=== PATIENT | male | born 1980 | race Caucasian/White ===

== ENCOUNTER 2025-04-18 10:45 | Inpatient (IN) | payer OTHER, SELFPAY ==
[2025-04-17 20:36] VITALS: BP 159/104; BMI 25.0
[2025-04-17 20:43] VITALS: BP 159/104
[2025-04-17 21:47] LABS: Hematocrit 34.6 % (39.0-52.0); Hemoglobin 12.1 g/dL (13.0-18.0); Mean Corp Hgb Conc. 35.0 g/dL (33.0-37.0); Mean Corpuscular Volume 81.6 fL (80.0-94.0); Nucleated Red Blood Cells % 0 % (-); Platelet Count 191 10^3/uL (130-400); Red Cell Dist. Width 13.4 % (11.5-14.5)
[2025-04-17 22:07] LABS: ALT (SGPT) 67 U/L (0-50); AST (SGOT) 54 U/L (17-59); Albumin 3.8 g/dl (3.5-5.0); Alkaline Phosphatase 639 U/L (38-126); Blood Urea Nitrogen 15 mg/dl (9-20); Calcium 9.0 mg/dl (8.4-10.2); Carbon Dioxide 26 mmol/L (22-30); Chloride 102 mmol/L (98-107); Estimated Creatinine Clearance > 125 ml/min; Glucose 110 mg/dl (70-99); Potassium 3.8 mmol/L (3.5-5.1); Sodium 135 mmol/L (135-145); Total Protein 7.0 g/dl (6.3-8.2); eGFR > 60.00
[2025-04-18 04:00] VITALS: BP 150/104
--- NOTE | 2025-04-18 04:06 | ED.GENMED ---
History of Present Illness
General
Chief Complaint: Skin Problem
Source: patient and police
Exam Limitations: none
Time Seen by Provider: 04/18/25 03:41
Nursing documentation reviewed up to this point in time: agreed with
History of Present Illness
History of Present Illness:
45-year-old male presents from [facility] for 'infection in both of his legs '. Patient states for the last year he has had open leg wounds on his bilateral anterior tibias. He states that it is from tranq use. He reports
that in December he had a 9-day hospital stay at an outside hospital for osteomyelitis. He states he had several MRIs and was discharged in improved condition. Shortly thereafter he was incarcerated and has been getting wound care ever since.
Patient states [facility]. 3 days ago he started to notice some redness and increased swelling in his legs. He saw an RN today and she arranged to have him transported to [facility] for evaluation. She
confirmed that the erythema in his legs is worsening and she is concerned for osteomyelitis. Patient denies fever or chills. He states that his legs are more painful now than before.
Review of Systems
Review of Systems
Allergies reviewed?: Yes
All Other Systems: ROS reviewed and negative except as documented in HPI and ROS
Constitutional: Reports no symptoms
EENT: Reports no symptoms
Respiratory: Reports no symptoms
Cardiac: Reports no symptoms
ABD/GI: Reports no symptoms
: Reports no symptoms
Musculoskeletal: Reports joint pain, muscle pain and edema
Skin: Reports no symptoms
Neurological: Reports no symptoms
Endocrine: Reports no symptoms
Hematologic/Lymphatic: Reports no symptoms
Psychiatric: Reports no symptoms
Phy Exam
General Physical Exam
General Presentation: mild distress
General age: appears older than age
General Skin: warm, dry and other (Multiple wounds in various stages of healing)
General Habitus: poor hygiene
General Mental: alert
General Hydration: appears well hydrated
Cardiovascular Exam
Cardiovascular Exam: regular rate/rhythm and no edema
Pulmonary Exam
Pulmonary Exam: lungs clear and no respiratory distress
Skin Exam
Skin Exam: other (Large ulcers on the anterior tibias bilaterally running most of the length of the tibia. These wounds are surrounded by areas of deep erythema which is painful and indurated consistent with cellulitis.)
Course
Orders/Labs/Results
Orders:
Orders
04/17/25 21:36
Complete Blood Count/With Diff Urgent
Comprehensive Metabolic Panel Urgent
Blood Culture Urgent
KARIN Source: Blood/Venous
Specimen Description:
04/17/25 21:43
Lactic Acid Urgent
04/18/25 04:08
CR Leg Tibia/fibula Left 2 Vw Urgent
Comment:
Reason For Exam: open wound
CR Leg Tibia/fibula Right 2 Vw Urgent
Comment:
Reason For Exam: open wound
04/18/25 04:15
Blood Culture Q30M
KARIN Source: Blood/Venous
Specimen Description:
04/18/25 04:47
CefTRIAXone [Rocephin] 2,000 mg IV NOW STA
04/18/25 04:48
Vancomycin [Vancocin] 2,000 mg 0.9% Sodium Chloride 500 ml [Nss] 500 ml IV NOW
04/18/25 04:49
Sterile Water [Sterile Water For Injection] 20 ml IV NOW STA
Abnormal Lab Results
04/17/25
21:36
WBC 4.2 L 10^3/uL
(4.8-10.8)
RBC 4.24 L 10^6/uL
(4.70-6.10)
Hgb 12.1 L g/dL
(13.0-18.0)
Hct 34.6 L %
(39.0-52.0)
MPV 11.2 H fL
(7.4-10.4)
Absolute Lymphs (auto) 0.9 L 10^3/uL
(1.2-3.4)
Monocytes % 11.0 H %
(1.7-9.3)
Creatinine 0.6 L mg/dL
(0.7-1.3)
Glucose 110 H mg/dl
(70-99)
Total Bilirubin 1.6 H mg/dl
(0.2-1.3)
ALT 67 H U/L
(0-50)
Alkaline Phosphatase 639 H U/L
(38-126)
04/17/25 21:36
04/17/25 21:36
Vital Signs
Initial and Last Documented VS:
Initial Vital Signs
Pulse Resp BP Pulse Ox
109 18 159/104 100
04/17/25 20:36 04/17/25 20:36 04/17/25 20:36 04/17/25 20:36
Last Documented Vital Signs
Temp Pulse Resp BP Pulse Ox
98.2 F 92 19 159/104 100
04/18/25 04:01 04/18/25 03:45 04/18/25 03:45 04/17/25 20:43 04/18/25 04:08
*Pulse Oximetry
SaO2: 100
Oxygen Mode of Delivery: Room air
Patient hypoxic: no
*Critical Care Note
Total Time (30-74mins, 75-104mins- exclusive of procedures): Not Applicable
ED Attending Note
-
Portions of this chart may have been created with voice recognition software.� Occasional wrong word or��sound alike� substitutions may have occurred due to the inherent limitations of voice recognition software.
Discharge Plan
Departure
Patient Disposition: Admit
Date of Disposition: 04/18/25
Time of Disposition: 04:57
Admit to: Med/Surg
Presentation/result/management discussed w/ accepting MD/DO: Hospitalist
Discharge Problem:
Wound infection, Cellulitis, Suspected osteomyelitis
Referrals:
[facility] [Family Provider, General]
Interventions
Interventions:
*General Assessment Last Done: 04/17/25 20:36
*Neglect/Abuse Screening Last Done: 04/17/25 20:36
*ED COVID-19 Vaccine History Last Done: 04/17/25 20:36
*ED Influenza Vaccine History Last Done: 04/17/25 20:36
[facility] Fall Risk Assessment Tool Last Done: 04/17/25 21:01
*Risk Screen - Suicide (C-SSRS) Last Done: 04/17/25 20:36
ED-Skin Assessment Last Done: 04/18/25 04:01
Discharge Date and Time
Print Language: YAKUT
[2025-04-18 06:25] VITALS: BP 135/87
--- NOTE | 2025-04-18 06:31 | VATNOTE ---
attempted x3 to estahlish iv access in pt for ordered abx and pending lab draws as well. pt had usg iv previously inserted last pm but became occluded and non-patent. removed by pcn. will recommend midline to be inserted. pcn aware of plan of care.
[2025-04-18 07:00] VITALS: BP 135/90
--- NOTE | 2025-04-18 07:31 | HPS.HSE ---
Family Physician
-
Family Physician: Facility [facility]
Chief Complaint
-
Leg Wounds
History of Present Illness
This is a 45 year old male patient presenting to [facility] from [facility] for concerns of leg wounds. He states that he has noticed bilateral leg wounds for the past year from tranq use. He was treated at [facility] for
osteomyelitis with IV antibiotics and felt improved after being discharged. He was incarcerated shortly thereafter and has been getting consistent wound care at the correctional facility. He states for the past 1 week he had noticed skin around
his wounds was red, painful. He also noticed his bilateral leg swelling. [facility], he was arranged to arrive at [facility].
Patient denies any fever, nausea, vomiting or chills. 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
Medical History
Past Medical History
Past Medical History: Reports None and HTN
Past Surgical History: Reports Appendectomy
Social History
Tobacco: Non-smoker
Alcohol: None
Drug: IVDA (IVDA since 24 years old, mostly heroin)
Living: [facility]
Family History
Family History: Not pertinent
Allergies / Home Medications
Allergies reflects when Allergies were last updated in [facility].
Home Medications with original date entered in [facility]
Allergy/Medication List:
Allergies
Allergy/AdvReac Type Severity Reaction Status Date / Time
No Known Allergies Allergy Verified 04/18/25 04:19
Review of Systems
-
History Source: Patient
A 12 point ROS was completed and negative except as noted: Yes
Musculoskeletal: Reports Other (Bilateral leg swelling)
Physical Exam
Vital Signs
Vital Signs
Temp Pulse Resp BP Pulse Ox
97.8 F 92 18 150/104 97
04/18/25 06:27 04/18/25 04:30 04/18/25 04:30 04/18/25 04:00 04/18/25 04:30
Physical Exam
General: No Apparent Distress and Conversant
HEENT: NormoCephalic and Anicteric
Respiratory: Clear
Cardiac: S1/S2 and Regular Rhythm
GI: Soft, Non Tender and Non Distended
Musculoskeletal: Other (Bilateral leg wound with surrounding erythematous skin, tender)
Skin: Warm and Dry
Neuro: Awake, Alert and Oriented
Psych: Calm
Laboratory Results
-
04/17/25 21:36
04/17/25 21:36
Laboratory Results
Lactic Acid 1.1 mmol/L (0.7-2.0) 04/17/25 21:43
Total Bilirubin 1.6 mg/dl (0.2-1.3) H 04/17/25 21:36
AST 54 U/L (17-59) 04/17/25 21:36
ALT 67 U/L (0-50) H 04/17/25 21:36
Alkaline Phosphatase 639 U/L (38-126) H 04/17/25 21:36
Impression/Plan
-
IMPRESSION:This is a 45 year old male patient presenting to [facility] from [facility] for concerns of leg wounds.
PLAN:
#Bilateral Leg wounds infection
- x ray L & R legs:No acute osseous abnormality of the bilateral lower legs
- blood cultures pending
- LA normal, ALP elevated
- Continue IV Vancomycin and IV cefepime
- elevate limbs
- wound care consult
#Anemia
- hb 12.1 likely attributable to ongoing infection
- monitor cbc
#HTN
-start correctional facility meds pt was previously on (lasix, losartan)
#Tinea Cruris
-start clotrimazole cream in groin area
Code: Full Code
DVT ppx: lovenox
[2025-04-18] MEDS: STERILE WATER FOR INJECTION 20 ML IV (08:44)
[2025-04-18] MEDS: ROCEPHIN 2000 MG IV (08:46)
[2025-04-18] MEDS: VANCOCIN 540 MG IV (08:47)
[2025-04-18] MEDS: LOTRIMIN 1% CREAM 1 APPLIC TOPICAL ×2 (10:23→20:54)
[2025-04-18 11:32] VITALS: BP 120/72
[2025-04-18] MEDS: LASIX 40 MG PO (11:33)
[2025-04-18] MEDS: COZAAR 50 MG PO (11:33)
[2025-04-18] MEDS: VITAMIN B1 100 MG PO (11:33)
--- NOTE | 2025-04-18 12:01 | PHA.VAN.IN ---
Assessment
- Assessment
Renal Function: Unknown baseline
Concomitant Antimicrobials: CEFTRIAXONE 2000 MG Q 24H
AUC Dosing Plan
- Dosing Variables
Dosing Weight (kg): 86
Dosing CrCl (ml/min): 125
Vd coefficient (L/kg): 0.7
- Empiric Dosing
Initial / Loading Dose: 2000 MG 04/18 @08:47
Maintenance Regimen: 1500 MG Q12
Estimated AUC (mcg*h/mL): 498
Estimated Peak (mcg*h/mL): 34.3
Estimated Trough (mcg/ml): 11
Estimated Half Life (H): 6.4
- Monitoring
No levels ordered at this time: CONSIDER ORDERING NEXT FEW DAYS
Pharmacokinetics Vancomycin I
- -
Patient Age: 45
Patient Sex: Male
Vancomycin Day #: 1
Indication: Bone And Joint
Requesting Provider: PRABHU MURCIA
Height / Weight:
Height 6 ft 1 in
Actual Weight 86 kg
Pertinent Past Medical History: PREVIOUS HISTORY OF OSTEOMYELITIS, LEG WOUNDS, IVDA
- Vital Signs / Lab Results
Temp Pulse Resp BP Pulse Ox
97.8 F 92 13 120/72 97
04/18/25 06:27 04/18/25 11:32 04/18/25 11:32 04/18/25 11:32 04/18/25 06:30
Lab Results - Hematology
04/17/25
21:36
WBC 4.2 L
Lab Results - Chemistry
04/17/25
21:36
BUN 15
Creatinine 0.6 L
Estimated Creat Clear > 125
Albumin 3.8
04/17/25
21:43
Lactic Acid 1.1
--- NOTE | 2025-04-18 14:39 | WOUNDNOTE ---
[facility] RN note: Patient admitted with bilateral LE cellulitis
See H&P for complete history.
PMH: hypertension, injection drug use (opiates and tranquilizer), and chronic lower extremity wounds
Wound Location and type/assessment: Patient admitted with full thickness wound to right and left LE due to IVDA. Patient reports he has had wounds for over a year and they are being treated at correctional facility by cleaning with Dakins,
applying adaptic, and wearing DONITA wraps (per patient report). Patient has +2 LE edema and with palpable pulses. See worklist for measurements and description of wounds. Sacrum and heels intact.
Appetite: Fair
Pressure redistribution devices in place: Called bed tech for bed. Patient currently in ER.
Plan: Wounds cleaned with Dakins and Xeroform, ABD and suhail applied. Patient reported some pain with wound care but tolerated well. Patient agreeable to follow up at [facility] after discharge from hospital. Will confirm orders with hospitalist and update
nurse. Updated care plan and will follow as needed.
Note to case management of equipment requested for discharge:
Recommend follow up at wound care center upon discharge.
[2025-04-18 15:30] VITALS: BP 142/86; BMI 24.0
--- NOTE | 2025-04-18 15:52 | WOUNDNOTE ---
RIGHT LATERAL LOWER LEG
--- NOTE | 2025-04-18 15:53 | WOUNDNOTE ---
LEFT LATERAL LOWER LEG
[2025-04-18] MEDS: VANCOCIN 530 MG IV (18:13)
[2025-04-18] MEDS: LOVENOX 40 MG SC (18:13)
[2025-04-18] MEDS: TYLENOL 650 MG PO (20:45)
[2025-04-18] MEDS: ZYRTEC 10 MG PO (20:51)
--- NOTE | 2025-04-18 21:29 | PTCARENOTE ---
Pt states that BLE dressings were changed in the afternoon and he does not want them changed again tonight. House [employer] made aware and changed Dakin's and Lac hydrin orders from [facility] to [facility].
[2025-04-18] MEDS: PAMELOR PO (22:13)
[2025-04-18 23:00] VITALS: BP 141/80
[2025-04-19 05:11] LABS: ALT (SGPT) 63 U/L (0-50); AST (SGOT) 53 U/L (17-59); Albumin 3.4 g/dl (3.5-5.0); Alkaline Phosphatase 646 U/L (38-126); Blood Urea Nitrogen 11 mg/dl (9-20); Calcium 9.0 mg/dl (8.4-10.2); Carbon Dioxide 23 mmol/L (22-30); Chloride 105 mmol/L (98-107); Estimated Creatinine Clearance > 125 ml/min; Glucose 141 mg/dl (70-99); Potassium 3.8 mmol/L (3.5-5.1); Sodium 136 mmol/L (135-145); Total Protein 6.2 g/dl (6.3-8.2); eGFR > 60.00
[2025-04-19 05:24] LABS: Hematocrit 35.4 % (39.0-52.0); Hemoglobin 12.2 g/dL (13.0-18.0); Mean Corp Hgb Conc. 34.5 g/dL (33.0-37.0); Mean Corpuscular Volume 81.6 fL (80.0-94.0); Nucleated Red Blood Cells % 0 % (-); Platelet Count 175 10^3/uL (130-400); Red Cell Dist. Width 13.1 % (11.5-14.5)
[2025-04-19] MEDS: VANCOCIN 530 MG IV ×2 (06:16→17:43)
[2025-04-19 07:20] VITALS: BP 157/93
[2025-04-19] MEDS: VITAMIN B-12 1000 MCG PO (10:40)
[2025-04-19] MEDS: ZINC 50 MG PO (10:40)
[2025-04-19] MEDS: COZAAR 50 MG PO (10:41)
[2025-04-19] MEDS: VITAMIN B1 100 MG PO (10:41)
[2025-04-19] MEDS: VITAMIN D3 (cholecalciferol) 125 MCG PO (10:41)
[2025-04-19] MEDS: VITAMIN C 500 MG PO (10:41)
[2025-04-19] MEDS: THERAGRAN 1 TABLET PO (10:41)
[2025-04-19] MEDS: LASIX 40 MG PO (10:42)
[2025-04-19] MEDS: TYLENOL 650 MG PO ×2 (10:42→19:37)
--- NOTE | 2025-04-19 10:42 | PHA.VAN.FU ---
Vancomycin Assessment / Plan
- Assessment
Renal Function: Stable
WBC's are: WNL
In the past 24 hrs, patient has been: Afebrile
- Dosing Plan
Continue: 1500 MG Q 12
- Monitoring Plan
No level(s) ordered at this time: Consider ordering over the next few days
- Follow Up
Pharmacy will continue to follow.
Vancomycin Follow UP
- -
Patient Age: 45
Patient Sex: Male
Vancomycin Day #: 2
Indication: Bone And Joint
Requesting Provider: PRABHU MURCIA
Height / Weight:
Height 6 ft 1 in
Actual Weight 82.611 kg
Pertinent Past Medical History: PREVIOUS HISTORY OF OSTEOMYELITIS, LEG WOUNDS, IVDA
- Vital Signs / Lab Results
Temp Pulse Resp BP Pulse Ox
97.7 F 93 18 157/93 95
04/19/25 07:20 04/19/25 07:20 04/19/25 07:20 04/19/25 07:20 04/19/25 07:20
Lab Results - Hematology
04/17/25 04/19/25
21:36 04:27
WBC 4.2 L 3.1 L
Lab Results - Chemistry
04/17/25 04/19/25
21:36 04:27
BUN 15 11
Creatinine 0.6 L 0.5 L
Estimated Creat Clear > 125 > 125
Albumin 3.8 3.4 L
04/17/25
21:43
Lactic Acid 1.1
Microbiology Results
04/18/25 08:22 Blood Culture - Preliminary
Blood/Venous No Growth in 24 hours- Final report to follow
04/17/25 21:36 Blood Culture - Preliminary
Blood/Venous No Growth in 24 hours- Final report to follow
[2025-04-19] MEDS: ROCEPHIN 2000 MG IV (10:43)
[2025-04-19] MEDS: STERILE WATER FOR INJECTION 20 ML IV (10:43)
[2025-04-19] MEDS: FOLVITE 1 MG PO (10:43)
[2025-04-19] MEDS: LOTRIMIN 1% CREAM 1 APPLIC TOPICAL ×2 (10:49→19:41)
[2025-04-19] MEDS: LAC HYDRIN, AM LACTIN LOTION 1 APPLIC TOPICAL (10:50)
[2025-04-19] MEDS: SODIUM HYPOCHLORITE 0.5% 473 ML TOPICAL (10:51)
[2025-04-19] MEDS: LIDOCAINE 4% PATCH 1 PATCH TOPICAL (12:15)
[2025-04-19] MEDS: TORADOL 15 MG IV (12:20)
--- NOTE | 2025-04-19 14:18 | W.PN.HOSP.TC ---
Today's Communication/Plan
-
Assessment / Plan
Assessment / Plan
General: No Apparent Distress, Comfortable and Conversant
HEENT: NormoCephalic, Moist mucous membranes, Atraumatic
Respiratory: Clear and Non Labored Respirations
Cardiac: S1/S2 and Regular Rhythm; No Rub or Gallop
GI: Soft, normal bowel sounds
Musculoskeletal: Chronic appearing bilateral garcia wounds with surrounding erythema, left shoulder/neck pain with mild weakness of left armor reconnaissance specialist strength
Skin: Warm and dry
: No Cruz
Neuro: Awake, Alert, Nonfocal/grossly intact
Psych: Calm and cooperative
Mr. 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
wounds. The medical staff at his correctional facility had been caring for his wounds however he began developing worsening erythema around his wounds over the past 1 week. His wounds have become more painful and he has also noticed some swelling.
He was previously treated at [facility] for osteomyelitis due to his lower extremities due to his wounds. He was incarcerated following that treatment and has been receiving wound care regularly since that time. He is not in acute opiate
withdrawal. He remains hemodynamically stable. He denies any fever or chills. X-ray imaging shows no evidence of osteomyelitis in his lower extremities adjacent to his wounds. He was started on antibiotics and admitted for further evaluation and
management.
Acute on chronic wounds, bilateral lower extremities:
- No evidence of osteomyelitis on imaging
- Continue IV antibiotics with vancomycin and ceftriaxone, follow-up blood and wound cultures
- Local wound care
- Monitor for signs and symptoms of systemic infection
Left shoulder/neck pain:
- Acute, with radiation from neck down left arm
- Also has associated weakened left hand armor reconnaissance specialist strength
- Will give NSAID pain medication and lidocaine patch
- Will consider MRI C-spine
Abnormal LFTs:
- T. bili 1.6, AST 54/ALT 67, alk phos 639
- LFTs relatively unchanged today with T. bili 1.7, AST 53/AST 63, alk phos 646
- Unclear chronicity
- Right upper quadrant ultrasound shows mildly dilated common biliary duct of 8 mm, enlarged liver and spleen, gallbladder sludge and stones without evidence of acute cholecystitis
- Will ask for GI evaluation
Anemia:
- Mild with hemoglobin 12.1, possibly due to smoldering infection
- Stable
DVT prophylaxis: Lovenox
CODE STATUS: Full code
Anticipated Discharge: > 48 hours
Subjective/Interval History
-
Date of Service: April 19, 2025
Patient was seen and examined at bedside this morning. Complains of left shoulder and arm pain with weakness in his left hand. LFTs also remain abnormal and right upper quadrant ultrasound shows gallbladder sludge and slightly dilated CBD.
Objective Data
-
Labs:
Laboratory Results
04/19/25
04:27
WBC 3.1 L
Hgb 12.2 L
Hct 35.4 L
Plt Count 175
Sodium 136
Potassium 3.8
Chloride 105
Carbon Dioxide 23
BUN 11
Creatinine 0.5 L
Glucose 141 H
Calcium 9.0
Total Bilirubin 1.7 H
AST 53
ALT 63 H
Alkaline Phosphatase 646 H
Vital Signs:
Vital Signs
Temp Pulse Resp BP Pulse Ox
97.7 F 93 18 157/93 95
04/19/25 07:20 04/19/25 10:41 04/19/25 07:20 04/19/25 10:41 04/19/25 13:19
I&O
04/18/25 04/19/25 04/20/25
06:59 06:59 06:59
Intake Total 530 / 530
Balance 530 / 530
Review of Systems
-
History Source: Patient
All other systems: Reviewed and negative
Musculoskeletal: Reports Other (Left shoulder and arm pain with left hand weakness)
Physical Exam
-
General: No Apparent Distress
--- NOTE | 2025-04-19 14:31 | CM ---
CM reviewed chart, care ongoing.
Anticipated d/c <48 hrs.
Patient inmate at [facility], plan to return upon d.c.
CM will continue to follow for all d/c needs.
Plan; return to [facility]
Report: [phone]
[2025-04-19 15:23] VITALS: BP 157/93
--- NOTE | 2025-04-19 16:56 | CON.GI ---
Addendum entered and electronically signed by Herberth Dalton MD 04/19/25 17:39:
Given elevated alk phos, will check GRAHAM, AMA, immunoglobulins r/o PBC
Original Note:
Consultation
-
Date/Time Consultation Requested: 04/19/25 11:09am
Date/Time Consultation Performed: 04/19/25 4:57pm
Requesting Provider: Anup Ravi
Performing Provider: Herberth Dalton
Reason for Consultation: Abmildly dilated CBDnl LFTs, gallstones
Medical History
Chief Complaint / HPI
Chief Complaint: Abmildly dilated CBDnl LFTs, gallstones
History of Present Illness:
45yo male presents from correctional facility with LE pain. He has hx LE wounds treated from October-December. Eval this admission negative for osteomyelitis. LFTs noted to be abnl. He reports IVDU beginning at age 27. He was abstinent for 13 years,
then relapsed year and half ago. He states he tested negative of Hep C in 2014. Drinks EtOH couple times per week, a 6 pack of beer. Denies abd pain, n/v, anorexia. He did lose weight when treating for LE wounds
Past Medical History
Past Medical History: HTN and Other (LE wounds)
Past Surgical History: None
Social History
Alcohol: Occasional
Drug: IVDA (IVDA beginning age 27. Was abstinent for 13 years then relapsed year and half ago.)
Family History
Family History: Reviewed & Not Pertinent
Allergies / Home Medications
Allergy/AdvReac Type Severity Reaction Status Date / Time
No Known Allergies Allergy Verified 04/18/25 04:19
�Medication �Instructions �Recorded
acetaminophen 325 mg tablet 650 mg PO BID mild pain 04/18/25
ammonium lactate 12 % lotion 1 applic topical HS b/l legs 04/18/25
ascorbic acid (vitamin C) 500 mg 500 mg PO DAILY Supplement 04/18/25
tablet (Vitamin C)
cetirizine 10 mg tablet 10 mg PO QHS Allergies 04/18/25
cholecalciferol (vitamin D3) 125 125 mcg PO DAILY Supplement 04/18/25
mcg (5,000 unit) tablet (Vitamin
D3)
cyanocobalamin (vitamin B-12) 1,000 mcg PO DAILY Supplement 04/18/25
1,000 mcg tablet (Vitamin B-12)
folic acid 1 mg tablet 1 mg PO DAILY Supplement 04/18/25
furosemide 40 mg tablet 40 mg PO DAILY Fluid 04/18/25
Retention/Swelling
losartan 50 mg tablet 50 mg PO DAILY Blood Pressure 04/18/25
nortriptyline 50 mg capsule 50 mg PO HS Mental Health/Anxiety 04/18/25
sodium hypochlorite 0.5 % solution 1 applic topical HS b/l legs 04/18/25
(Dakin's Solution)
therapeutic multivitamin 1 tab PO DAILY Supplement 04/18/25
thiamine HCl (vitamin B1) 100 mg 100 mg PO DAILY Supplement 04/18/25
tablet (Vitamin B-1)
zinc sulfate 50 mg zinc (220 mg) 50 mg PO DAILY Supplement 04/18/25
capsule
Review of Systems
-
All other systems: A 12 pt ROS was Negative except as stated above in HPI
Vital Signs
Temp Pulse Resp BP Pulse Ox
97.3 F 78 18 157/93 97
04/19/25 15:23 04/19/25 15:23 04/19/25 15:23 04/19/25 15:23 04/19/25 15:23
Physical Exam
Exam
General: Well Developed, Well Nourished and No Apparent Distress
HEENT: Normocephalic and Atraumatic
Respiratory: Non Labored Respirations
GI: Soft, Non Tender and Non Distended
Results
WBC 3.1 10^3/uL (4.8-10.8) L 04/19/25 04:27
Hgb 12.2 g/dL (13.0-18.0) L 04/19/25 04:27
Hct 35.4 % (39.0-52.0) L 04/19/25 04:27
MCV 81.6 fL (80.0-94.0) 04/19/25 04:27
Plt Count 175 10^3/uL (130-400) 04/19/25 04:27
Absolute Neuts (auto) 1.8 10^3/uL (1.4-6.5) 04/19/25 04:27
Sodium 136 mmol/L (135-145) 04/19/25 04:27
Potassium 3.8 mmol/L (3.5-5.1) 04/19/25 04:27
Chloride 105 mmol/L (98-107) 04/19/25 04:27
Carbon Dioxide 23 mmol/L (22-30) 04/19/25 04:27
BUN 11 mg/dl (9-20) 04/19/25 04:27
Creatinine 0.5 mg/dL (0.7-1.3) L 04/19/25 04:27
Calcium 9.0 mg/dl (8.4-10.2) 04/19/25 04:27
Total Bilirubin 1.7 mg/dl (0.2-1.3) H 04/19/25 04:27
AST 53 U/L (17-59) 04/19/25 04:27
ALT 63 U/L (0-50) H 04/19/25 04:27
Alkaline Phosphatase 646 U/L (38-126) H 04/19/25 04:27
Diagnostic Image Results:
US- CBD mildly dilated 8mm. Liver enlarged 21cm. Small hyperechoic lesions likely hemangiomas. Severe splenomegaly. GB sludge/stones
Assessment / Plan
-
Summary: 45yo male hx IVDU presents from correctional facility with LE pain due to leg wounds. Eval negative for osteomyelitis. LFTs abnl. US shows mildly dilated CBD, splenomegaly, GS/sludge. Tested negative hep C in 2014. Started IVDA age
27, abstinent 13 yrs then relapsed year and half ago.
US- CBD mildly dilated 8mm. Liver enlarged 21cm. Small hyperechoic lesions likely hemangiomas. Severe splenomegaly. GB sludge/stones
Impression:
LE pain/wounds
Abnl LFTs
IVDU
Dilated CBD on US
Recommendations:
Check MRI/MRCP r/o CBD stone, obstructing lesion
Check Hep B/C serologies
-
-
Thank you for consultation and allowing me to participate in the patient's care. Please call the [facility] manager GI physician during the after hours with any questions or concerns.
[2025-04-19] MEDS: LOVENOX 40 MG SC (17:43)
[2025-04-19] MEDS: REMOVE LIDOCAINE PATCH 1 PATCH REMOVE (19:37)
[2025-04-19] MEDS: PAMELOR 50 MG PO (19:38)
[2025-04-19] MEDS: ZYRTEC 10 MG PO (19:40)
[2025-04-19 23:00] VITALS: BP 160/102
[2025-04-19] MEDS: APRESOLINE 5 MG IV (23:09)
[2025-04-20 04:00] VITALS: BP 146/94
[2025-04-20 05:23] LABS: Hematocrit 34.7 % (39.0-52.0); Hemoglobin 12.5 g/dL (13.0-18.0); Mean Corp Hgb Conc. 36.0 g/dL (33.0-37.0); Mean Corpuscular Volume 81.3 fL (80.0-94.0); Nucleated Red Blood Cells % 0 % (-); Platelet Count 170 10^3/uL (130-400); Red Cell Dist. Width 12.8 % (11.5-14.5)
[2025-04-20 05:42] LABS: ALT (SGPT) 58 U/L (0-50); AST (SGOT) 51 U/L (17-59); Albumin 3.3 g/dl (3.5-5.0); Alkaline Phosphatase 651 U/L (38-126); Blood Urea Nitrogen 12 mg/dl (9-20); Calcium 8.7 mg/dl (8.4-10.2); Carbon Dioxide 21 mmol/L (22-30); Chloride 106 mmol/L (98-107); Estimated Creatinine Clearance > 125 ml/min; Glucose 133 mg/dl (70-99); Iron 88 ug/dl (49-181); Potassium 3.7 mmol/L (3.5-5.1); Sodium 136 mmol/L (135-145); Total Protein 6.1 g/dl (6.3-8.2); eGFR > 60.00
[2025-04-20 05:52] LABS: Total Iron Binding Capacity 398 ug/dl (261-462)
[2025-04-20 06:15] LABS: Ferritin 37.4 ng/ml (17.9-464.0)
[2025-04-20] MEDS: VANCOCIN 530 MG IV ×2 (06:19→17:42)
--- NOTE | 2025-04-20 06:24 | W.PN.GI.CBS2 ---
Today's Communication / Plan
-
Await rest of liver work-up and MRI/MRCP this AM. Rest of care as outlined below.
Assessment / Plan
-
Summary: 45yo male hx IVDU presents from correctional facility with LE pain due to leg wounds. Eval negative for osteomyelitis. LFTs abnl. US shows mildly dilated CBD, splenomegaly, GS/sludge. Tested negative hep C in 2014. Started IVDA age
27, abstinent 13 yrs then relapsed year and half ago.
US- CBD mildly dilated 8mm. Liver enlarged 21cm. Small hyperechoic lesions likely hemangiomas. Severe splenomegaly. GB sludge/stones
#Cholestatic-induced Liver Inury
#Elevated LFTs
#Biliary Ductal Dilation on US
#LE pain/wounds
#IVDU/IVDA
Dilated CBD on US
Added-on additional AI and PBC labs. Pending hepatitis serologies. No INR. LFTs remain elevated with predominant cholestatic-induced liver injury with ALP 651, AST 51, ALT 58 and T Bili 1.4
Recommendations:
- Keep NPO
- Trend LFTs q daily along with daily INRs
- Await viral hepatitis serologies
- Added-on additional AIH/PBC labs
- Ordered MRI/MRCP WWO contrast
- Pain control and anti-emetics PRN
- Rest of care as per primary team
GI will continue to follow.
Subjective
Subjective
Date of Service: April 20, 2025
- No acute events overnight, ordered MRI/MRCP given elevated LFTs and prior US findings with biliary dilation
- Added-on additional AI and PBC labs. Pending hepatitis serologies. No INR
- LFTs remain elevated with predominant cholestatic-induced liver injury with ALP 651, AST 51, ALT 58 and T Bili 1.4
Resting comfortably, seen on-route to MRI. Mild abdominal discomfort this AM but notes improvement and without any abdominal pain. Otherwise, denies any other fever/chills or nausea/vomiting.
Objective
Data Reviewed
Laboratory Data:
Laboratory Results
04/20/25 04:59
04/20/25 04:59
Laboratory Results
Total Bilirubin 1.4 mg/dl (0.2-1.3) H 04/20/25 04:59
AST 51 U/L (17-59) 04/20/25 04:59
ALT 58 U/L (0-50) H 04/20/25 04:59
Alkaline Phosphatase 651 U/L (38-126) H 04/20/25 04:59
Vital Signs and I&O:
Vital Signs
Temp Pulse Resp BP Pulse Ox
97.8 F 95 18 146/94 97
04/19/25 23:00 04/20/25 04:00 04/19/25 23:00 04/20/25 04:00 04/19/25 23:00
I&O
04/18/25 04/19/25 04/20/25
06:59 06:59 06:59
Intake Total 530 / 530 960 / 960
Balance 530 / 530 960 / 960
Physical Exam
Physical Exam
HEENT: Anicteric and Moist mucous membranes
Pulmonary: Other (Normal WOB on room air)
GI: Soft, Non Distended and Non Tender
[2025-04-20 06:25] LABS: Hepatitis B Surface Antigen Negative (Negative)
[2025-04-20 06:43] LABS: Hepatitis C Antibody Negative (Negative)
[2025-04-20 08:00] VITALS: BP 163/108
--- NOTE | 2025-04-20 09:37 | PHA.VAN.FU ---
Vancomycin Assessment / Plan
- Assessment
Renal Function: Stable
In the past 24 hrs, patient has been: Afebrile
Concomitant Antimicrobials: ceftriaxone
- Dosing Plan
Continue: Vanc 1500mg Q12H
- Monitoring Plan
Peak Level: 04/20 21:30
Trough Level: 04/21 05:30
Monitoring Comments: levels to be drawn after 5th maintenance dose
- Follow Up
Pharmacy will continue to follow.
Vancomycin Follow UP
- -
Patient Age: 45
Patient Sex: Male
Vancomycin Day #: 3
Indication: Bone And Joint
Requesting Provider: Dr. Bynum (resident)
Pertinent Antimicrobial Allergies:
NKDA
Height / Weight:
Height 6 ft 1 in
Actual Weight 82.611 kg
Pertinent Past Medical History: IV SANODR
- Vital Signs / Lab Results
Temp Pulse Resp BP Pulse Ox
97.9 F 98 16 163/108 97
04/20/25 08:00 04/20/25 08:00 04/20/25 08:00 04/20/25 08:00 04/20/25 08:00
Lab Results - Hematology
04/17/25 04/19/25 04/20/25
21:36 04:27 04:59
WBC 4.2 L 3.1 L 2.5 L
Lab Results - Chemistry
04/17/25 04/19/25 04/20/25
21:36 04:27 04:59
BUN 15 11 12
Creatinine 0.6 L 0.5 L 0.5 L
Estimated Creat Clear > 125 > 125 > 125
Albumin 3.8 3.4 L 3.3 L
04/17/25
21:43
Lactic Acid 1.1
Microbiology Results
04/18/25 08:22 Blood Culture - Preliminary
Blood/Venous No Growth in 48 hours- Final report to follow
04/17/25 21:36 Blood Culture - Preliminary
Blood/Venous No Growth in 48 hours- Final report to follow
[2025-04-20] MEDS: VITAMIN B-12 1000 MCG PO (09:44)
[2025-04-20] MEDS: VITAMIN C 500 MG PO (09:56)
[2025-04-20] MEDS: ZINC 50 MG PO (09:56)
[2025-04-20] MEDS: THERAGRAN 1 TABLET PO (09:57)
[2025-04-20] MEDS: TYLENOL 650 MG PO ×2 (09:57→20:28)
[2025-04-20] MEDS: COZAAR 50 MG PO (09:57)
[2025-04-20] MEDS: VITAMIN B1 100 MG PO (09:57)
[2025-04-20] MEDS: FOLVITE 1 MG PO (09:58)
[2025-04-20] MEDS: LIDOCAINE 4% PATCH 1 PATCH TOPICAL (09:58)
[2025-04-20] MEDS: LASIX 40 MG PO (09:58)
[2025-04-20] MEDS: ROCEPHIN 2000 MG IV (10:00)
[2025-04-20] MEDS: STERILE WATER FOR INJECTION 20 ML IV (10:00)
[2025-04-20] MEDS: VITAMIN D3 (cholecalciferol) 125 MCG PO (10:00)
[2025-04-20] MEDS: SODIUM HYPOCHLORITE 0.5% 473 ML TOPICAL (11:23)
[2025-04-20] MEDS: LAC HYDRIN, AM LACTIN LOTION 1 APPLIC TOPICAL (11:27)
[2025-04-20] MEDS: LOTRIMIN 1% CREAM 1 APPLIC TOPICAL ×2 (11:27→20:31)
[2025-04-20 14:54] LABS: INR 0.81; PT 11.3 Sec (11.4-14.6)
[2025-04-20 15:54] VITALS: BP 157/101
--- NOTE | 2025-04-20 16:32 | W.PN.HOSP.TC ---
Today's Communication/Plan
-
Assessment / Plan
Assessment / Plan
General: No Apparent Distress, Comfortable and Conversant
HEENT: NormoCephalic, Moist mucous membranes, Atraumatic
Respiratory: Clear and Non Labored Respirations
Cardiac: S1/S2 and Regular Rhythm; No Rub or Gallop
GI: Soft, normal bowel sounds
Musculoskeletal: Chronic appearing bilateral garcia wounds with surrounding erythema
Skin: Warm and dry
: No Cruz
Neuro: Awake, Alert, Nonfocal/grossly intact
Psych: Calm and cooperative
Mr. 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
wounds. The medical staff at his correctional facility had been caring for his wounds however he began developing worsening erythema around his wounds over the past 1 week. His wounds have become more painful and he has also noticed some swelling.
He was previously treated at [facility] for osteomyelitis due to his lower extremities due to his wounds. He was incarcerated following that treatment and has been receiving wound care regularly since that time. He is not in acute opiate
withdrawal. He remains hemodynamically stable. He denies any fever or chills. X-ray imaging shows no evidence of osteomyelitis in his lower extremities adjacent to his wounds. He was started on antibiotics and admitted for further evaluation and
management.
Acute on chronic wounds, bilateral lower extremities:
- No evidence of osteomyelitis on imaging
- Continue IV antibiotics with vancomycin and ceftriaxone, cultures negative
- Local wound care
- Monitor for signs and symptoms of systemic infection
- Anticipate transition to oral antibiotics tomorrow for discharge
Left shoulder/neck pain:
- Resolved
- Continue NSAID pain medication and lidocaine patch
Abnormal LFTs:
- T. bili 1.6, AST 54/ALT 67, alk phos 639
- LFTs relatively unchanged with T. bili 1.4, AST 51/AST 58, alk phos 651
- Unclear chronicity
- Right upper quadrant ultrasound shows mildly dilated common biliary duct of 8 mm, enlarged liver and spleen, gallbladder sludge and stones without evidence of acute cholecystitis
- MRI/MRCP shows no obstruction, slightly dilated CBD
- Acute hepatitis BC negative, immune studies pending
- Evaluated by GI, no need for acute intervention, recommend outpatient follow-up
Anemia:
- Mild with hemoglobin 12., possibly due to smoldering infection
- Stable
- Iron studies normal
- Will monitor
DVT prophylaxis: Lovenox
CODE STATUS: Full code
Anticipated Discharge: 24 - 48 hours
Subjective/Interval History
-
Date of Service: April 20, 2025
Patient was seen and examined at bedside this morning. Lower extremity cellulitis improving. MRI/MRCP shows mildly dilated CBD with no evidence of obstruction.
Objective Data
-
Labs:
Laboratory Results
04/20/25 04/20/25
04:59 14:36
WBC 2.5 L
Hgb 12.5 L
Hct 34.7 L
Plt Count 170
PT 11.3 L
INR 0.81
Sodium 136
Potassium 3.7
Chloride 106
Carbon Dioxide 21 L
BUN 12
Creatinine 0.5 L
Glucose 133 H
Calcium 8.7
Total Bilirubin 1.4 H
AST 51
ALT 58 H
Alkaline Phosphatase 651 H
Vital Signs:
Vital Signs
Temp Pulse Resp BP Pulse Ox
97.9 F 96 16 157/101 99
04/20/25 15:54 04/20/25 15:54 04/20/25 15:54 04/20/25 15:54 04/20/25 15:54
I&O
04/19/25 04/20/25 04/21/25
06:59 06:59 06:59
Intake Total 530 / 530 960 / 960
Balance 530 / 530 960 / 960
Review of Systems
-
History Source: Patient
All other systems: Reviewed and negative
Physical Exam
-
General: No Apparent Distress
[2025-04-20] MEDS: LOVENOX 40 MG SC (17:41)
[2025-04-20] MEDS: PAMELOR 50 MG PO (20:28)
[2025-04-20] MEDS: ZYRTEC 10 MG PO (20:28)
[2025-04-20] MEDS: REMOVE LIDOCAINE PATCH 1 PATCH REMOVE (20:28)
[2025-04-20] MEDS: TORADOL 15 MG IV (20:30)
[2025-04-20 23:42] VITALS: BP 150/93
[2025-04-21] MEDS: VANCOCIN 530 MG IV (05:38)
[2025-04-21 05:52] LABS: Hematocrit 36.0 % (39.0-52.0); Hemoglobin 12.9 g/dL (13.0-18.0); Mean Corp Hgb Conc. 35.8 g/dL (33.0-37.0); Mean Corpuscular Volume 80.9 fL (80.0-94.0); Nucleated Red Blood Cells % 0 % (-); Platelet Count 184 10^3/uL (130-400); Red Cell Dist. Width 13.0 % (11.5-14.5)
[2025-04-21 06:19] LABS: ALT (SGPT) 59 U/L (0-50); AST (SGOT) 52 U/L (17-59); Albumin 3.5 g/dl (3.5-5.0); Alkaline Phosphatase 673 U/L (38-126); Blood Urea Nitrogen 13 mg/dl (9-20); Calcium 8.9 mg/dl (8.4-10.2); Carbon Dioxide 24 mmol/L (22-30); Chloride 105 mmol/L (98-107); Estimated Creatinine Clearance > 125 ml/min; Glucose 147 mg/dl (70-99); Potassium 3.8 mmol/L (3.5-5.1); Sodium 135 mmol/L (135-145); Total Protein 6.5 g/dl (6.3-8.2); eGFR > 60.00
--- NOTE | 2025-04-21 06:43 | W.PN.GI.CBS2 ---
Addendum entered and electronically signed by Emmanuel Correa, DO 04/21/25 11:07:
Added on additional serologies to complete full serologic w/u of chronic liver disease.
Original Note:
Today's Communication / Plan
-
Recent MRI/MRCP (-) for biliary obstruction/choledocho. Await rest of liver w/u, synthetic function remains intact. Will need Hepatology f/u after discharge. Start PPI and bowel regimen given generalized abd pain however recent MRI unremarkable. See
rest of care as outlined below.
Assessment / Plan
-
Summary: 45yo male hx IVDU presents from correctional facility with LE pain due to leg wounds. Eval negative for osteomyelitis. LFTs abnl. US shows mildly dilated CBD, splenomegaly, GS/sludge. Tested negative hep C in 2014. Started IVDA age
27, abstinent 13 yrs then relapsed year and half ago. US- CBD mildly dilated 8mm. Liver enlarged 21cm. Small hyperechoic lesions likely hemangiomas. Severe splenomegaly. GB sludge/stones
#Cholestatic-induced Liver Inury
#Elevated LFTs
#Biliary Ductal Dilation on US
#LE pain/wounds
#IVDU/IVDA
Dilated CBD on US
Impression: Patient patient presenting with abnormal LFTs consistent with cholestatic induced liver injury. Otherwise, his synthetic function remains intact. Unfortunately, no prior LFTs available for review is unclear chronicity. Recent MRI/MRCP
also unrevealing for any choledocholithiasis biliary obstruction however a mild dilation of the CBD without any intraluminal filling defects. There appears to be evidence of hepatosplenomegaly however with patent vasculature. Still pending
additional autoimmune and PBC serologies and viral hepatitis has been ruled out.
Recommendations:
- Regular diet as tolerated
- LFTs still persistently elevated, synthetic function remains intact
- Viral hepatitis r/o and (+) HBsAB c/w immunity to HBV
- Await rest of autoimmune / PBC labs as previously orddered
- MRI Abdomen WWO contrast 04/20/25: Mild prominence of the common bile duct measuring up to 6.8 mm. No evidence for stricture or filling defect. Cholelithiasis. Hepatosplenomegaly with patent hepatic vasculature
- No plans for EUS/ERCP while inpatient, would consider eventual EUS as outpatient given mild CBD dilation
- Start IV PPI 40 mg BiD and bowel regimen
- Needs close Hepatology follow as outpatient given his cholestatic induced liver injury and hepatosplenomegaly. Recommend outpatient f/u with Dr. Ochoa and/or [facility] after discharge
- Pain control and anti-emetics PRN
- Rest of care as per primary team
GI will continue to follow.
Subjective
Subjective
Date of Service: April 21, 2025
- MRI Abdomen WWO contrast 04/20/25: Mild prominence of the common bile duct measuring up to 6.8 mm. No evidence for stricture or filling defect. Cholelithiasis. Hepatosplenomegaly with patent hepatic vasculature
- INR 0.81 and repeat LFTs stable with ALP 673, AST 52, ALT 59, and T Bili 1.6 ; pending AI and PBC labs
- Otherwise, no acute events overnight
Resting comfortably, denies any prior known history of elevated LFTs (as no prior baseline labs available for comparison) or family history of liver disease. No other pruritus, jaundice, scleral icterus or other symptoms to suggest clinical liver
disease. Still with vague, generalized abdominal discomfort and reviewed recent unremarkable MRI/MRCP although with mild CBD dilation. Having bowel movements and tolerating diet without difficulty.
Objective
Data Reviewed
Laboratory Data:
Laboratory Results
04/21/25 05:38
04/21/25 05:38
Laboratory Results
PT 11.3 Sec (11.4-14.6) L 04/20/25 14:36
INR 0.81 04/20/25 14:36
Total Bilirubin 1.6 mg/dl (0.2-1.3) H 04/21/25 05:38
AST 52 U/L (17-59) 04/21/25 05:38
ALT 59 U/L (0-50) H 04/21/25 05:38
Alkaline Phosphatase 673 U/L (38-126) H 04/21/25 05:38
Vital Signs and I&O:
Vital Signs
Temp Pulse Resp BP Pulse Ox
97 F 100 20 150/93 97
04/20/25 23:42 04/20/25 23:42 04/20/25 23:42 04/20/25 23:42 04/20/25 23:42
I&O
04/19/25 04/20/25 04/21/25
06:59 06:59 06:59
Intake Total 530 / 530 960 / 960 0 / 2320
Balance 530 / 530 960 / 960 0 / 0
Physical Exam
Physical Exam
HEENT: Anicteric and Moist mucous membranes
Pulmonary: Other (Normal WOB on room air)
GI: Soft, Non Distended and Non Tender (Minimal TTP throughout abdomen)
Neuro: Non Focal
[2025-04-21 07:10] VITALS: BP 160/108
[2025-04-21 08:19] VITALS: BP 160/108
--- NOTE | 2025-04-21 08:21 | PHA.VAN.FU ---
Vancomycin Assessment / Plan
- Assessment
Renal Function: Stable
WBC's are: Stable
In the past 24 hrs, patient has been: Afebrile
Concomitant Antimicrobials: CEFTRIAXONE
- Assessment - Therapeutic Drug Monitoring
Extrapolated Cmax (mcg/mL): 25.1
Peak level was drawn: Appropriately
Extrapolated Cmin (mcg/mL): 10.0
Trough Drawn: Appropriately
Levels were drawn: At steady state
Calculated AUC (mcg*h/mL): 398
Calculated ke: 0.0874
Calculated half life (H): 7.9
Calculated Vd (L): 86.13
Calculated Vanc CL (ml/min): 125.42
- Dosing Plan
Adjust Regimen to: VANCO 1250MG Q8
New Regimen Predicts: AUC (531), Peak (28.9), Trough (16.4)
- Monitoring Plan
No level(s) ordered at this time: CONSIDER LEVEL AT STEADY STATE
- Follow Up
Pharmacy will continue to follow.
Vancomycin Follow UP
- -
Patient Age: 45
Patient Sex: Male
Vancomycin Day #: 4
Indication: Bone And Joint
Requesting Provider: Dr. Bynum (resident)
Pertinent Antimicrobial Allergies:
NKDA
Height / Weight:
Height 6 ft 1 in
Actual Weight 82.611 kg
Pertinent Past Medical History: IV SANDOR
- Vital Signs / Lab Results
Temp Pulse Resp BP Pulse Ox
97.6 F 96 18 160/108 99
04/21/25 07:10 04/21/25 07:10 04/21/25 07:10 04/21/25 07:10 04/21/25 07:10
Lab Results - Hematology
04/19/25 04/20/25 04/21/25
04:27 04:59 05:38
WBC 3.1 L 2.5 L 3.3 L
Lab Results - Chemistry
04/19/25 04/20/25 04/21/25
04:27 04:59 05:38
BUN 11 12 13
Creatinine 0.5 L 0.5 L 0.5 L
Estimated Creat Clear > 125 > 125 > 125
Albumin 3.4 L 3.3 L 3.5
Microbiology Results
04/17/25 21:36 Blood Culture - Preliminary
Blood/Venous No Growth in 72 hours- Final report to follow
04/18/25 08:22 Blood Culture - Preliminary
Blood/Venous No Growth in 48 hours- Final report to follow
Therapeutic Drug Monitoring
Vancomycin Peak 20.2 ug/ml (18-26) 04/20/25 21:42
Vancomycin Trough 10.1 ug/ml (5-20) 04/21/25 05:38
[2025-04-21] MEDS: VITAMIN B-12 1000 MCG PO (09:29)
[2025-04-21] MEDS: LIDOCAINE 4% PATCH 1 PATCH TOPICAL (09:29)
[2025-04-21] MEDS: VITAMIN B1 100 MG PO (09:30)
[2025-04-21] MEDS: THERAGRAN 1 TABLET PO (09:30)
[2025-04-21] MEDS: VITAMIN D3 (cholecalciferol) 125 MCG PO (09:30)
[2025-04-21] MEDS: ZINC 50 MG PO (09:30)
[2025-04-21] MEDS: TYLENOL 650 MG PO (09:30)
[2025-04-21] MEDS: FOLVITE 1 MG PO (09:30)
[2025-04-21] MEDS: VITAMIN C 500 MG PO (09:30)
[2025-04-21] MEDS: LASIX 40 MG PO (09:31)
[2025-04-21] MEDS: COZAAR 50 MG PO (09:31)
[2025-04-21] MEDS: NSS (PRESERVATIVE FREE) 10 ML IV (11:32)
[2025-04-21] MEDS: STERILE WATER FOR INJECTION 20 ML IV (11:33)
[2025-04-21] MEDS: PROTONIX IV 40 MG IV (11:33)
[2025-04-21] MEDS: ROCEPHIN 2000 MG IV (11:34)
[2025-04-21] MEDS: SODIUM HYPOCHLORITE 0.5% 473 ML TOPICAL (11:43)
[2025-04-21] MEDS: LAC HYDRIN, AM LACTIN LOTION 1 APPLIC TOPICAL (11:43)
[2025-04-21] MEDS: LOTRIMIN 1% CREAM TOPICAL (11:44)
--- NOTE | 2025-04-21 12:28 | CM ---
Patient to return to [facility] today
Plan; [facility] today
[facility]
Report: [phone]
--- NOTE | 2025-04-21 12:40 | W.DCSUMMARY ---
Discharge Summary
Discharge Data
Date of Admission: 04/18/25
Date of Discharge: 04/21/25
Total time spent discharging patient (in min): 48
-
Pending Results: No
Hospital Course
Mr. 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
wounds. The medical staff at his correctional facility had been caring for his wounds however he began developing worsening erythema around his wounds over the past 1 week prior to arrival. His wounds had become more painful and he also noticed
some swelling. He was previously treated at [place] for osteomyelitis due to his lower extremities due to his wounds. He was incarcerated following that treatment and had been receiving wound care regularly since that time. He remained
hemodynamically stable. X-ray imaging shows no evidence of osteomyelitis in his lower extremities adjacent to his wounds. He was started on antibiotics and admitted for further evaluation and management.
His wounds and surrounding erythema dramatically improved after 3 days of IV antibiotics and local wound care. He was transitioned to oral antibiotics to complete a total 10-day antibiotic course and discharged. He will need ongoing local wound
care. His lab work was notable for mildly abnormal LFTs which remained stable. MRI/MRCP of his abdomen showed hepatosplenomegaly and a very mildly dilated CBD and biliary sludge and stones with no evidence of obstruction or cholecystitis. His
hepatitis B and C serologies were negative. His autoimmune studies are pending. He was evaluated by GI who recommended outpatient follow-up with a radiotelegraphist.
General: No Apparent Distress, Comfortable and Conversant
HEENT: NormoCephalic, Moist mucous membranes, xanthelasma palpebrarum
Respiratory: Clear and Non Labored Respirations
Cardiac: S1/S2 and Regular Rhythm; No Rub or Gallop
GI: Soft, normal bowel sounds
Musculoskeletal: Chronic appearing bilateral garcia wounds, surrounding erythema resolved
Skin: Warm and dry
: No Cruz
Neuro: Awake, Alert, Nonfocal/grossly intact
Psych: Calm and cooperative
Discharge Plan
-
Patient Disposition: [facility]
Discharge Diagnosis/Procedures: Bilateral leg wound infections
Abnormal LFTs
Activity Restrictions/Additional Instructions:
Wound Care Instructions Bilateral Legs: Clean with Dakins, apply Xeroform to wound bed, cover with ABD, wrap with suhail. Change daily.
Compression with DONITA, re-apply daily
Follow up at wound care center call for an appointment.
You were admitted for treatment of infected leg wounds. Your wounds are chronic and have been requiring regular wound care. However the surrounding areas appeared infected and so you were admitted for treatment with IV antibiotics. Your infection
appeared dramatically improved after 3 days of IV antibiotics. You have now been transitioned to oral antibiotics which you will continue to complete a total 10-day course. You will need ongoing wound care for your leg wounds until they have
completely healed. Also of note, you had abnormal liver function tests noted on your lab work during this admission. Imaging showed that you have an enlarged liver and spleen but no evidence of blockage in your biliary duct and no evidence of
cholecystitis which is good. Your lab work was also negative for hepatitis B and C. You were evaluated by the interior block wirer who recommended outpatient follow-up with a radiotelegraphist (liver doctor) for further workup and monitoring of your
liver abnormalities.
Referrals:
[facility],Facility [Family Provider, General]
Prescriptions:
New
doxycycline hyclate 100 mg tablet
100 mg PO BID 7 Days Qty: 14 0RF
amoxicillin 875 mg tablet
875 mg PO BID 7 Days Qty: 14 0RF
Continued
losartan 50 mg Tablet
50 mg PO DAILY
furosemide 40 mg Tablet
40 mg PO DAILY
acetaminophen 325 mg Tablet
650 mg PO BID
ammonium lactate 12 % Lotion
1 applic TOPICAL HS
cetirizine 10 mg Tablet
10 mg PO QHS
cyanocobalamin (vitamin B-12) [Vitamin B-12] 1,000 mcg Tablet
1,000 mcg PO DAILY
therapeutic multivitamin Tablet
1 tab PO DAILY
ascorbic acid (vitamin C) [Vitamin C] 500 mg Tablet
500 mg PO DAILY
folic acid 1 mg Tablet
1 mg PO DAILY
nortriptyline 50 mg Capsule
50 mg PO HS
Dakin's Solution 0.5 % Solution
1 applic TOPICAL HS
zinc sulfate 50 mg zinc (220 mg) Capsule
50 mg PO DAILY
cholecalciferol (vitamin D3) [Vitamin D3] 125 mcg (5,000 unit) Tablet
125 mcg PO DAILY
thiamine HCl (vitamin B1) [Vitamin B-1] 100 mg Tablet
100 mg PO DAILY
Discharge Orders:
Discharge Patient (As Directed); Ordered 04/21/25
Ordered By: Anup Ravi
Discharge Date and Time
Print Language: SYRIAC
[2025-04-21 12:56] LABS: Iron 101 ug/dl (49-181)
[2025-04-21 13:05] LABS: Total Iron Binding Capacity 453 ug/dl (261-462)
[2025-04-21] MEDS: VANCOCIN 275 MG IV (13:36)
[2025-04-21 15:04] LABS: Ferritin 33.7 ng/ml (17.9-464.0)
[2025-04-21 15:10] VITALS: BP 158/95
[2025-04-22 02:47] LABS: ANA, IgG Reflex to HEp-2 None Detected (None Detected)
[2025-04-22 04:11] LABS: Mitochondrial M2 Ab, IgG 2.4 Units (0.0-24.9)
== END 2025-04-21 17:38 | DRG 603 ==
LOC: 4 WEST ACU 10:45
PROVIDERS: Emergency Medicine; Student in an Organized Health Care Education/Training Program; ADMITTING PHYSICIAN Internal Medicine; CONSULT PHYSICIAN Specialist; EMERGENCY PHYSICIAN Student in an Organized Health Care Education/Training Program
DX: L03.116 Cellulitis of left lower limb (principal); L03.115 Cellulitis of right lower limb; R79.89 Other specified abnormal findings of blood chemistry; B35.6 Tinea cruris; D64.9 Anemia, unspecified; D18.03 Hemangioma of intra-abdominal structures; I10 Essential (primary) hypertension; F11.90 Opioid use, unspecified, uncomplicated; F13.90 Sedative, hypnotic, or anxiolytic use, unspecified, uncomplicated
CPT/HCPCS: 73590; 74183; 76700; 80053; 80202; 82103; 82104; 82390; 82728; 82784; 82787; 83516; 83540; 83550; 83605; 84443; 85025; 85610; 86015; 86038; 86231; 86381; 86704; 86706; 86803; 87040; 87340; A9575